=== PATIENT | male | born 1970 | race Caucasian/White ===

== ENCOUNTER 2017-02-13 20:08 | Emergency (ER) | payer BC ==
[2017-02-13 20:31] VITALS: BP 140/92
[2017-02-13] MEDS ORDERED: Lidocaine 1% with EPINEPHrine 1:100,000 50 ML MDV SUBCUT STA (20:41)
[2017-02-13] MEDS ORDERED: Bacitracin Oint 1 GM U/D Packet TOP ONE (20:41)
--- NOTE | 2017-02-13 21:14 | EDM.PDOC ---
ED HPI GENERAL MEDICAL PROBLEM - General Chief Complaint: Laceration Stated Complaint: CUT ON LT LEG Time Seen by Provider: 02/13/17 20:39 Source of Information: Reports: Patient, RN Notes Reviewed History Limitations: Reports: No Limitations - History of Present Illness INITIAL COMMENTS - FREE TEXT/NARRATIVE: 46-year-old gentleman presents emergency department a laceration to his left leg this occurred while he was working home a piece of metal in a boat had punctured his bauer area lower extremity left side, no functional complaints - Related Data Allergies Allergy/AdvReac Type Severity Reaction Status Date / Time No Known Allergies Allergy Verified 02/13/17 20:25 Home Meds: Home Meds NK [No Known Home Meds] 02/13/17 [History] Past Medical History - Past Health History Medical/Surgical History: Denies Medical/Surgical History Social & Family History - Tobacco Use Smoking Status *Q: Current Every Day Smoker Years of Tobacco use: 25 Packs/Tins Daily: 0.5 - Recreational Drug Use Recreational Drug Use: No ED ROS GENERAL - Review of Systems Review Of Systems: See Below Constitutional: Reports: No Symptoms Musculoskeletal: Reports: No Symptoms Skin: Reports: Wound ED EXAM, SKIN/RASH Exam: See Below Text/Narrative:: Examination lower extremity there is a 3 cm laceration completely through the dermis into the subcutaneous fat is located mid shaft lower extremity and left side pedal pulses 2+ Exam Limited By: No Limitations General Appearance: Alert, WD/WN, No Apparent Distress ED SKIN PROCEDURES - Laceration/Wound Repair Left Leg Lac/Wound length In cm: 3 Appearance: Subcutaneous, Linear Distal NVT: Neuro & Vascular Intact, No Tendon Injury Anesthetic Type: Local Local Anesthesia - Lidocaine (Xylocaine): 1% With EPI Local Anesthetic Volume: 2cc Skin Prep: Chlorhexidine (Hibiciens), Saline Saline Irrigation (cc's): 150 Exploration/Debridement/Repair: Wound Explored, in a Bloodless Field, Explored to Base Closed with: Sutures Suture Size: 4-0 # of Sutures: 6 Suture Type: Interrupted Suture Size: 4-0 # of Sutures: 2 Repaired with: Vicryl Sterile Dressing Applied: Nurse Tetanus Status Addressed: Yes Complications: No Course - Vital Signs Last Recorded V/S: Last Vital Signs Temp 95.1 F L 02/13/17 20:30 Pulse 89 07/15/17 20:30 Resp 20 02/13/17 20:30 BP 140/92 H 02/13/17 20:30 Pulse Ox 97 02/13/17 20:30 - Orders/Labs/Meds Meds: Medications Discontinued Medications Generic Name Dose Route Start Last Admin Trade Name Rashaun PRN Reason Stop Dose Admin Bacitracin 1 dose 02/13/17 20:41 Bacitracin Oint 1 Gm TOP 02/13/17 20:42 ONETIME ONE Lidocaine/Epinephrine 20 ml 02/13/17 20:41 Xylocaine 1% With Epinephrine 1:100,000 SUBCUT 02/13/17 20:42 NOW STA Departure - Departure Time of Disposition: 21:14 Disposition: Home, Self-Care 01 Condition: Good Clinical Impression: Laceration of right lower leg Qualifiers: Encounter type: initial encounter Qualified Code(s): S81.811A - Laceration without foreign body, right lower leg, initial encounter - Discharge Information Forms: ED Department Discharge Additional Instructions: Follow wound care instruction sheet, suture removal in 10 days call return to the ED with worsening of symptoms - Assessment/Plan Plan: Assessment Acuity = acute Site and laterality = 3 cm laceration mid shaft left leg Etiology = trauma at home Manifestations = none Location of injury = Home Lab values = none Plan Follow wound care instruction sheet, suture removal in 10 days, last tetanus was in 1976 tetanus was provided Patient was in agreement with the plan all questions were answered, they were instructed to return to the emergency department or call for worsening symptoms. This note was dictated using [email or web address] voice recognition software please call with any questions.
[2017-02-13] MEDS ORDERED: Diphtheria,Pertussis(Acell),Tetanus Vaccine 0.5 ML SDV IM ONE (21:15)
== END 2017-02-13 21:38 | disposition home or self-care (01) ==
LOC: JP.ED 20:08
DX: S81.812A Laceration without foreign body, left lower leg, initial encounter (principal); F17.210 Nicotine dependence, cigarettes, uncomplicated; W45.8XXA Other foreign body or object entering through skin, initial encounter; Y92.814 Boat as the place of occurrence of the external cause
CPT/HCPCS: 12002; 90715; 99283-25

== ENCOUNTER 2020-11-04 15:04 | Emergency (ER) | payer BC ==
--- NOTE | 2020-11-04 15:22 | EDM.PDOC ---
ED HPI GENERAL MEDICAL PROBLEM - General Chief Complaint: Chest Pain Stated Complaint: CHEST PAIN Time Seen by Provider: 11/04/20 15:10 Source of Information: Reports: Patient, RN. Denies: Old Records History Limitations: Reports: Other (no old records) - History of Present Illness INITIAL COMMENTS - FREE TEXT/NARRATIVE: 50 yo male is brought into the ER today by his for recurring chest pain for several weeks not associated with radiation, SOB, nausea or diaphoresis. No self tx. Has no pHx of CAD. No calf pain or LE edema. Just told his today about the pain which is why he is here today. Laying supine seems to make it worse, not exertion. 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 Smokes about 1/2 ppd. Onset: Unknown/Unsure Duration: Week(s):, Waxing/Waning Location: Reports: Chest Quality: Reports: Pressure Severity: Mild (now, is worse at times) Improves with: Reports: Other (unsure) Context: Reports: Other (lying supine) Associated Symptoms: Reports: Chest Pain. 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: Reports: Other (see below) (none) Chest Pain Score (Numeric/FACES): 5 - Related Data Allergies Allergy/AdvReac Type Severity Reaction Status Date / Time No Known Allergies Allergy Verified 11/04/20 15:14 Home Meds: Home Meds Latanoprost/Pf [Latanoprost 0.005% Eye Drop] 1 drop EYELF BEDTIME 11/04/20 [History] Past Medical History - Past Health History Medical/Surgical History: Denies Medical/Surgical History ED ROS GENERAL - Review of Systems Review Of Systems: See Below Constitutional: Reports: No Symptoms HEENT: Reports: No Symptoms Respiratory: Denies: Shortness of Breath, Pleuritic Chest Pain, Cough, Sputum, Hemoptysis Cardiovascular: Reports: Chest Pain. Denies: Dyspnea on Exertion, Palpitations GI/Abdominal: Reports: No Symptoms : Reports: No Symptoms Musculoskeletal: Reports: No Symptoms Skin: Reports: No Symptoms Neurological: Reports: No Symptoms ED EXAM, GENERAL - Physical Exam Exam: See Below Exam Limited By: No Limitations General Appearance: Alert, WD/WN, No Apparent Distress Eye Exam: Bilateral Eye: Normal Inspection Ears: Normal External Exam, Normal Canal, Hearing Grossly Normal, Normal TMs Ear Exam: Bilateral Ear: Auricle Normal, Canal Normal, TM normal Nose: Normal Inspection, No Blood Throat/Mouth: Normal Inspection, Normal Lips, Normal Oropharynx, Normal Voice, No Airway Compromise Head: Atraumatic, Normocephalic Neck: Normal Inspection Respiratory/Chest: No Respiratory Distress, Lungs Clear, Normal Breath Sounds, No Accessory Muscle Use, Chest Non-Tender Cardiovascular: Regular Rate, Rhythm, No Edema GI/Abdominal: Normal Bowel Sounds, Soft, Non-Tender, No Distention Back Exam: Normal Inspection. No: CVA Tenderness (R), CVA Tenderness (L) Extremities: Normal Inspection, Normal Range of Motion, Non-Tender, No Pedal Edema. No: Pedal Edema, Suzanne's Sign Neurological: Alert, Oriented, CN II-XII Intact, Normal Cognition, No Motor/Sensory Deficits Psychiatric: Normal Affect, Normal Mood Skin Exam: Warm, Dry, Intact, Normal Color, No Rash #1 Interpretation EKG Date: 11/04/20 Time: 15:10 Rhythm: NSR Rate (Beats/Min): 87 Widen: Normal P-Wave: Present QRS: Normal ST-T: Normal QT: Normal Comparison: NA - No Prior EKG Course - Vital Signs Last Recorded V/S: Last Vital Signs Temp 36.1 C 11/04/20 15:16 Pulse 101 H 11/04/20 16:00 Resp 16 11/04/20 16:00 BP 122/80 11/04/20 16:00 Pulse Ox 93 L 11/04/20 16:00 - Orders/Labs/Meds Orders: Active Orders 24 hr Category Date Time Status Cardiac Monitoring [RC] .As Directed Care 11/04/20 15:06 Active EKG Documentation Completion [RC] ASDIRECTED Care 11/04/20 15:06 Active Nitroglycerin [Nitrostat] Med 11/04/20 15:43 Active 0.4 mg SL Q5M PRN EKG 12 Lead [EK] Routine Ther 11/04/20 15:06 Ordered Medication Orders Nitroglycerin (Nitroglycerin 0.4 Mg Tab.Sl) 0.4 mg SL Q5M PRN PRN Reason: Chest Pain Last Admin: 11/04/20 15:51 Dose: 0.4 mg Documented by: ALIZA Labs: Laboratory Tests 11/04/20 11/04/20 11/04/20 Range/Units 15:54 15:54 15:54 WBC 7.1 (4.5-11.0) K/uL RBC 4.52 (4.30-5.90) M/uL Hgb 14.1 (12.0-15.0) g/dL Hct 42.4 (40.0-54.0) % MCV 94 (80-98) fL MCH 31 (27-31) pg MCHC 33 (32-36) % Plt Count 231 (150-400) K/uL Sodium 146 (140-148) mmol/L Potassium 3.8 (3.6-5.2) mmol/L Chloride 107 (100-108) mmol/L Carbon Dioxide 25 (21-32) mmol/L Anion Gap 14.1 H (5.0-14.0) mmol/L BUN 6 L (7-18) mg/dL Creatinine 0.9 (0.8-1.3) mg/dL Est Cr Clr Drug Dosing 105.75 mL/min Estimated GFR (MDRD) > 60 (>60) Glucose 90 (74-106) mg/dL Calcium 8.8 (8.5-10.1) mg/dL Troponin I < 0.017 (0.000-0.056) ng/mL Meds: Medications Generic Name Dose Route Start Last Admin Trade Name Freq PRN Reason Stop Dose Admin Nitroglycerin 0.4 mg 11/04/20 15:43 11/04/20 15:51 Nitroglycerin 0.4 Mg Tab.Sl SL 0.4 mg Q5M PRN Administration Chest Pain Discontinued Medications Generic Name Dose Route Start Last Admin Trade Name Freq PRN Reason Stop Dose Admin Aspirin 324 mg 11/04/20 15:43 11/04/20 15:50 Aspirin 81 Mg Tab.Chew PO 11/04/20 15:44 324 mg ONETIME ONE Administration Al Hydroxide/Mg Hydroxide 15 0 ml 11/04/20 16:26 11/04/20 16:33 ml/ Lidocaine HCl 15 ml PO 11/04/20 16:27 15 ml ONETIME ONE Administration - Re-Assessments/Exams Free Text/Narrative Re-Assessment/Exam: 11/04/20 16:41 Sx's all gone after GI cocktail po Departure - Departure Time of Disposition: 16:42 Disposition: Home, Self-Care 01 Condition: Fair Clinical Impression: Tobacco use disorder GERD (gastroesophageal reflux disease) Qualifiers: Esophagitis presence: with esophagitis Esophagitis bleeding: without hemorrhage Qualified Code(s): K21.00 - Gastro-esophageal reflux disease with esophagitis, without bleeding Instructions: Steps to Quit Smoking, [id number], Food Choices for Gas troesophageal Reflux Disease, Adult Referrals: PCP,None [Primary Care Provider] - Forms: ED Department Discharge Additional Instructions: Use omeprazole 40 mg daily starting today. Avoid carbonated beverages, alcohol, tobacco. For pain use acetaminophen as it is easiest on the GI tract. May add Gaviscon 30 ml after meals and bedtime as needed for added relief. Get established with a doctor javed. Return as needed. Sepsis Event Note (ED) - Focused Exam Vital Signs: Vital Signs Temp Pulse Resp BP BP Pulse Ox 11/04/20 16:00 101 H 16 122/80 93 L 11/04/20 15:51 123/89 11/04/20 15:16 36.1 C 95 16 151/92 H 94 L - My Orders Last 24 Hours: My Active Orders 11/04/20 15:06 Cardiac Monitoring [RC] .As Directed EKG Documentation Completion [RC] ASDIRECTED EKG 12 Lead [EK] Routine 11/04/20 15:43 Nitroglycerin [Nitrostat] 0.4 mg SL Q5M PRN - Assessment/Plan Last 24 Hours: My Active Orders 11/04/20 15:06 Cardiac Monitoring [RC] .As Directed EKG Documentation Completion [RC] ASDIRECTED EKG 12 Lead [EK] Routine 11/04/20 15:43 Nitroglycerin [Nitrostat] 0.4 mg SL Q5M PRN
[2020-11-04] MEDS: Aspirin 81 MG Tab.Chew PO ONE (15:50)
[2020-11-04] MEDS: Nitroglycerin 0.4 MG Tab.SL SL PRN (15:51)
[2020-11-04 16:01] VITALS: BP 122/80; PULSE 101
[2020-11-04] MEDS: Alum Hydrox/Mag Hydrox/Simeth 15 ML, Lidocaine 2% 15 ML PO ONE ×2 (16:33)
== END 2020-11-04 16:55 | disposition home or self-care (01) ==
LOC: JP.ED 15:04
DX: K21.00 Gastro-esophageal reflux disease with esophagitis, without bleeding (principal); Z72.0 Tobacco use
CPT/HCPCS: 36415; 80048; 84484; 85027; 93005; 99285; A9270

== ENCOUNTER 2022-08-09 17:38 | Emergency (ER) | payer BC ==
[2022-08-09 17:46] VITALS: BP 161/77; PULSE 110
== END 2022-08-09 17:57 ==
LOC: JP.ED 17:38
DX: F10.10 Alcohol abuse, uncomplicated (principal); Z79.899 Other long term (current) drug therapy
CPT/HCPCS: 99282; 99283